=== PATIENT | male | born 1965 | race Caucasian/White ===

== ENCOUNTER → 2019-09-30 16:02 | Outpatient (CLI) | payer OTHER, SELFPAY ==
[2014-12-12 06:37] VITALS: BMI 36.8
--- NOTE | 2019-09-30 16:08 | RAD_ITS ---
STUDY: X-RAY CHEST REASON FOR EXAM: Male, 54 years old. pleural effusion -- estimate fluid volume TECHNIQUE: Frontal and lateral views of the chest. COMPARISON: None. FINDINGS: The lungs are clear and expanded. Small right pleural effusion. Prominent cardiac silhouette. Normal mediastinum and juan. Normal visualized pulmonary arteries. Normal visualized aortic arch and descending thoracic aorta. Normal visualized thoracic spine. Normal visualized ribs, clavicles, and shoulders. There is no demonstrated abnormality of the visualized soft tissue structures of the upper abdomen. RAD/Chest PA and Lateral IMPRESSION: Small right pleural effusion. Electronically Signed: Mina Moss MD at 17:25 EDT Tel , Service support ,
--- NOTE | 2019-09-30 16:10 | RAD_ITS ---
STUDY: X-RAY CHEST REASON FOR EXAM: Male, 54 years old. pleural effusion -- left decub TECHNIQUE: Left decubitus view COMPARISON: None. FINDINGS: The lungs are clear and expanded. No left layering pleural effusion is seen. However, please note that the left lateral lung base is excluded from view. Prominent cardiac silhouette. Normal mediastinum and juan. Normal visualized pulmonary arteries. Normal visualized aortic arch and descending thoracic aorta. Normal visualized thoracic spine. Normal visualized ribs, clavicles, and shoulders. There is no demonstrated abnormality of the visualized soft tissue structures of the upper abdomen. RAD/Special CXR (Obl/Decub/A/L) IMPRESSION: No left layering pleural effusion is seen. However, please note that the left lateral lung base is excluded from view. Electronically Signed: Mina Moss MD at 21:28 EDT Tel , Service support ,
--- NOTE | 2019-09-30 16:10 | RAD_ITS ---
STUDY: X-RAY CHEST REASON FOR EXAM: Male, 54 years old. right side decub -- pleural effusion TECHNIQUE: Right lateral decubitus view COMPARISON: None. FINDINGS: The lungs are clear and expanded. Mild layering right pleural effusion. Prominent cardiac silhouette. Normal mediastinum and juan. Normal visualized pulmonary arteries. Normal visualized aortic arch and descending thoracic aorta. Normal visualized thoracic spine. Normal visualized ribs, clavicles, and shoulders. There is no demonstrated abnormality of the visualized soft tissue structures of the upper abdomen. RAD/Special CXR (Obl/Decub/A/L) IMPRESSION: Mild layering right pleural effusion. Electronically Signed: Mina Moss MD at 21:26 EDT Tel , Service support ,
== END ==
PROVIDERS: PCP Family Medicine; Referring Provider Internal Medicine Pulmonary Disease; Visit Provider Internal Medicine Pulmonary Disease
DX: J90 Pleural effusion, not elsewhere classified (principal)
CPT/HCPCS: 71046

== ENCOUNTER → 2019-10-10 14:11 | Outpatient (CLI) | payer OTHER, SELFPAY ==
--- NOTE | 2019-10-10 14:14 | US_ITS ---
STUDY: SUPERFICIAL ULTRASOUND - RIGHT PLEURAL CAVITY. REASON FOR EXAM: Male, 54 years old. PLEURAL EFFUSION TECHNIQUE: A superficial ultrasound was performed with real-time and static pacheco-scale imaging. COMPARISON: None. FINDINGS: A tiny right pleural effusion is seen. This is not enough for safe thoracentesis. US/Chest IMPRESSION: Tiny right pleural effusion. Electronically Signed: Moe Ortega, at 15:40 EDT , Service support ,
== END ==
PROVIDERS: PCP Family Medicine; Referring Provider Internal Medicine Pulmonary Disease; Visit Provider Internal Medicine Pulmonary Disease
DX: J90 Pleural effusion, not elsewhere classified (principal)
CPT/HCPCS: 76604